=== PATIENT | female | born 1970 | race Caucasian/White ===

== ENCOUNTER 2020-03-07 12:15 | Emergency (ER) | payer MEDICAID ==
[~2020-03-07] VITALS: Ht 165.1 cm; Wt 88.9 kg
--- NOTE | 2020-03-07 12:37 | NUR ---
[employer]: PT AMBULATORY TO ROOM FROM LOBBY
--- NOTE | 2020-03-07 12:53 | NUR ---
URINE SENT TO LAB, PT CT
[2020-03-07 12:56] LABS: MICROSCOPIC AUTO
--- NOTE | 2020-03-07 12:58 | NUR ---
Pt here for kidney pain and was seen at last week and diagnosed with stone. Pt reports right flank pain. Pt reports no abx was started. Pt reports she is concerned that she has developed more pain.
[2020-03-07 13:01] LABS: BASOPHILS % (AUTO) 1 % (0-1); EOSINOPHILS % (AUTO) 2 % (1-7); LYMPHOCYTES % (AUTO) 38 % (22-44); MEAN CORPUSCULAR HEMOGLOBIN 31.7 pg (27.0-34.8); MEAN CORPUSCULAR HGB CONC 33.2 g/dL (32.4-35.8); MEAN PLATELET VOLUME 7.7 fL (7.4-10.4); MONOCYTES % (AUTO) 8 % (2-9); NEUTROPHILS % (AUTO) 51 % (42-75); PLATELET COUNT 291 x10^3/uL (130-400); RED BLOOD COUNT 4.68 x10^6/uL (3.82-5.3); RED CELL DISTRIBUTION WIDTH 13.9 % (9.6-15.2)
[2020-03-07 13:02] LABS: MD NO
[2020-03-07 13:06] LABS: ALBUMIN 3.9 g/dL (3.4-5.0); ANION GAP 7 mmol/L (5-15); CALCIUM 8.4 mg/dL (8.5-10.1); CHLORIDE 107 mmol/L (98-107); CREATININE 0.94 mg/dL (0.55-1.02)
[2020-03-07 13:53] VITALS: BP 140/100
--- NOTE | 2020-03-07 13:53 | NUR ---
edmd at bedside to explain all results at this time. pt's aox4. resps even and unlabored.
[2020-03-07] MEDS ORDERED: KETOROLAC 30 MG/1 ML IM ONE (14:00)
[2020-03-07] MEDS ORDERED: KETOROLAC 30 MG/1 ML ONE (14:03)
--- NOTE | 2020-03-07 14:07 | NUR ---
PT MEDICATED PER EMAR. PT TOLERATED WELL.
--- NOTE | 2020-03-07 14:37 | NUR ---
Patient given discharge instructions and they have confirmed that they understand the instructions. Patient ambulatory with steady gait.
== END 2020-03-07 14:38 | disposition home or self-care (01) ==
LOC: ED 14:23
DX: N23 Unspecified renal colic (principal); R31.9 Hematuria, unspecified; Z90.49 Acquired absence of other specified parts of digestive tract
CPT/HCPCS: 36415; 74176; 80048; 81001; 82040; 85025; 96372; 99284; J1885